=== PATIENT | female | born 2000 | race Caucasian/White ===

== ENCOUNTER 2024-03-18 08:57 | Emergency (ER) | payer OTHER, SELFPAY ==
--- NOTE | ~2024-03-18 | XR_ITS ---
EXAMINATION: XR CHEST CLINICAL INFORMATION: Chest pain. Cough. COMPARISON: None available. TECHNIQUE: 2 views of the chest were obtained. FINDINGS: The lungs are clear. The cardiomediastinal silhouette is normal in size. There is no pleural effusion or pneumothorax. No acute osseous abnormality. XR/XR chest 2V IMPRESSION: No acute cardiopulmonary findings. Electronically signed by: Ramiro Augustin MD 03/18/2024 09:29 AM EDT
[2024-03-18 09:06] VITALS: BP 119/69; PULSE 84; RESP 16; TEMP 37.1; O2SAT 99; BMI 32.1
--- NOTE | 2024-03-18 09:47 | ECG_ITS ---
Test Reason : CP Blood Pressure : / mmHG Vent. Rate : 085 BPM Atrial Rate : 085 BPM P-R Int : 138 ms QRS Dur : 078 ms QT Int : 354 ms P-R-T Axes : 031 055 017 degrees QTc Int : 421 ms Normal sinus rhythm Normal ECG No previous ECGs available Referred By: Sarika Castanon Electronically Signed By:DAYANARA BHAT
--- NOTE | 2024-03-18 09:51 | ED.GENADULT ---
HPI - General Adult General Chief complaint: General Medical Stated complaint: Headache/Bodyaches Time Seen by Provider: 03/18/24 09:20 Source: patient Mode of arrival: ambulatory Limitations: language barrier History of Present Illness ED Provider: Babita Castanon PA-C HPI narrative: 23 yo female with report of 2 x days aching joints, fevers, sternal chest pain only with walking. denies SOB while walking or other inciting events. Reports headache with photosensitivity, with increased pain/pressure when bending over in a forward position (head towards ground). Denies N/V/D. Denies cough, states had slight cough on day 1. Has been managing symptoms with acetaminophen at home. Denies neck pain, or rigidity, denies change in cervical range of motion. Denies sick contacts, no recent travel. [facility] vaccines are up to date, however, did not receive this seasons Flu vaccine as of this time. MD complaint: headache, body aches Onset (ago): day(s) Location: head, eyes and chest Radiation: non-radiation Associated symptoms: chest pain Treatments prior to arrival: NSAID Related Data Previous Rx's ?Medication ?Instructions ?Recorded xrpoowwdch-bkjeidrtuqsgf-iudvfyyb 1 tab PO Q6H PRN headache #7 tabs 03/18/24 50 mg-325 mg-40 mg tablet Allergies Allergy/AdvReac Type Severity Reaction Status Date / Time coconut Allergy Anaphylaxis Verified 03/18/24 09:14 mayonnaise Allergy Anaphylaxis Verified 03/18/24 09:14 shellfish derived Allergy Anaphylaxis Verified 03/18/24 09:14 Review of Systems Review of Systems: Yes all other systems are reviewed and are negative [facility] Social History Social History Advance Directives: No Advance Directives Information Provided: Yes Physical Exam ED Vital Signs: Vital Signs - 24 hr 03/18/24 09:06 03/18/24 11:11 Temperature 98.7 F 98.7 F Pulse Rate 84 84 Respiratory Rate 16 16 Blood Pressure 119/69 119/69 Pulse Oximetry 99 99 Oxygen Delivery Method Room Air Room Air BMI result Body Mass Index 32.1 Appearance: Alert. Oriented X3. No acute distress. Head: normocephalic, atraumatic. Eyes: Pupils equal, round and reactive to light. ENT: Pharynx normal. No tonsillar swelling or exudate. Neck: Normal inspection. Neck supple. No lymphadenopathy CVS: Normal heart rate and rhythm. Pulses normal. Respiratory: No respiratory distress. Breath sounds normal. Abdomen: Soft and nontender. +BS x4 Skin: Skin warm and dry. Normal skin color. Normal skin turgor. No rashes. Extremities: No lower extremity edema. No joint swelling. Neuro/psych: Oriented X 3. No motor deficit. No sensory deficit. CN II-XII intact. Normal speech and cognition. Medications Administered Discontinued Medications Generic Name Dose Route Start Last Admin Trade Name Chance PRN Reason Stop Dose Admin Ibuprofen 600 mg 03/18/24 10:02 03/18/24 10:11 Ibuprofen 600 Mg Tablet PO 03/18/24 10:03 600 mg ONCE ONE Administration Medical Decision Making Medical Decision Making [facility] Narrative: 23yo female with no pertinent medical history, not toxic appearing, afebrile, without N/V/D, negative for nuchal rigidity, negative for cervical tenderness, good active cervical ROM. Prearicular, postaricular, and occipital lymph nodes tender to palpation without swelling/not palpable. Knee and hip joints tender to palpation with ROM. External ear canal negative for erythema or swelling, internal canal negative for exudate or erythema, tympanic membranes pearly wahl without visible effusion bilaterally. Pupils PERRLA bilaterally. VS without abnormality,EKG without ectopy NSR, negative for CP at bedside assessment. CXR without evidence of PNA. Negative for COVID and Flu. Exam and clinical presentation are most consistent with acute viral process, low suspicion for encephalitis, meningitis. Her neuro exam is nonfocal. At this time she is stable for discharge home with supportive care. Return precautions were discussed Differential Diagnosis Differential Diagnoses: The differential diagnosis associated with the presentation includes COVID, flu, other viral syndrome, pericarditis, myocarditis, pneumonia, bronchitis, tick-borne illness Lab Data [facility] Lab Attestation statement: I reviewed the patient's lab results. Labs: Lab Results 03/18/24 Range/Units 09:31 COVID-19 (ANNE) Negative (Negative) COVID-19 Clin Com See Note Influenza Type A (JOSE) Negative (Negative) Influenza Type B (JOSE) Negative (Negative) Influenza A & B Note See Note Independent Interpretation I performed an independent interpretation of an: EKG and Plain X-Ray Interpretation: EKG showed NSR, ventricular rate 85 beats per minute, no ST segment elevations or depressions, isolated t-wave inversion in lead 3 only. CXR with clear lungs, without focal infiltrate, no cardiomegaly. Radiology Impression Discussion of test interpretation with radiology: I have reviewed the radiologist's reading. Radiologist Impression: XR/XR chest 2V IMPRESSION: No acute cardiopulmonary findings. Tests considered The following testing was considered but not selected: Tick panel considered however she denies any recent bites or rashes, does not spend time outside Prescription Management I considered prescription management with: Pain Medication, Antiviral and Antibiotic Critical Care Time Critical Care Time Critical Care Time: No Discharge Plan Discharge Clinical Impression: Acute viral syndrome Patient Disposition: Home, Self-Care Instructions: Viral Syndrome (ED) Additional Instructions: Your chest x-ray today was normal. Your EKG today was normal. You tested negative for COVID and flu. Your symptoms most likely due to another viral process. Recommend drinking plenty of fluids, take fmam-kem-szeuzhb cold and flu medications as needed for your symptoms. Take the prescribed medication as needed for headache. Recommend ibuprofen 600 mg every 6-8 hours as needed for headache as well, take this with food. Follow-up with your doctor. If you develop new or worsening symptoms call 911 or come back to the ER for further evaluation. Prescriptions: New tbwrscarmn-iyujihupmfwdb-hwaz 50-325-40 mg tablet 1 tab PO Q6H PRN (Reason: headache) Qty: 7 0RF Interventions: ED Discharge Assessment Last Done: 03/18/24 11:11 Discharge Date/Time: 03/18/24 11:11 Print Language: Greenlandic
[2024-03-18 09:54] LABS: COVID-19 Test Negative (Negative); IDNOW Serial# 08D9AD1C; IDNOW Serial# 152EDE1D; Influenza A Negative (Negative); Influenza B2 Negative (Negative)
[2024-03-18] MEDS: Ibuprofen 600 MG TABLET PO (10:11)
--- NOTE | 2024-03-18 10:12 | PC.NURSE ---
pt a&ox3, complains of 10/10 generalized pain and headache. pt mediated with ibuprofen per order.
[2024-03-18 11:11] VITALS: BP 119/69; PULSE 84; RESP 16; TEMP 37.1; O2SAT 99
== END 2024-03-18 11:11 | disposition home or self-care (01) ==
PROVIDERS: Physician Assistant; Emergency Provider Emergency Medicine; PCP Family Medicine
DX: B34.9 Viral infection, unspecified (principal); R51.9 Headache, unspecified; M79.10 Myalgia, unspecified site; R50.9 Fever, unspecified; R07.89 Other chest pain; R05.9 Cough, unspecified; Z11.52 Encounter for screening for COVID-19; Z79.899 Other long term (current) drug therapy
CPT/HCPCS: 71046; 87502; 87635; 93005; 99284

== ENCOUNTER 2024-07-27 02:21 | Emergency (ER) | payer OTHER, SELFPAY ==
[2024-07-27 02:47] VITALS: BP 115/70; PULSE 79; RESP 16; TEMP 37.1; O2SAT 98; BMI 26.1
--- OUTSIDE RECORDS SUMMARY | 2024-07-27 03:08 | XMS_ITS | Clinical Summary ---
Author Organization [facility] ity Address [id number] [place] [id number] Care Team Providers Care Vp Product Marketing Name Role Phone Unavailable Primary Care Provider Unavailabl e Social History Tobacco Use Types Packs/Day Years Used Date Smoking Tobacco: Never Assessed Sex and Gender Information Value Date Recorded Sex Assigned at Not on file Gender Identity Not on file Sexual Orientation Not on file Plan of Treatment Health Maintenance Due Date Last Done Comments Gonorrhea/Chlamydia Screening 2001 HPV Vaccines (1 - 3-dose series) 2016 DTaP,Tdap,and Td Vaccines (1 - Tdap) 2020 Hepatitis B Vaccines (1 of 3 - 19+ 3-dose series) 2020 Cervical Cancer Screening: P ap Smear 2022 Depression Screening 01/17/2024 HIV Screening 01/17/2024 Hepatitis C Screening 01/17/2024 Social Influencers of Health Screening 01/17/2024 COVID-19 Vaccine (1 - 2023-2 5 season) 2024 Influenza Vaccine (#1) 2024 HIB Vaccines Aged Out No longer eligi ble based on patient's age to complete this topic Hepatitis A Vaccines Aged Out No long er eligible based on patient's age to complete this topic IPV Vaccines Aged Out No longer eligi ble based on patient's age to complete this topic MMR Vaccines Aged Out No longer eligi ble based on patient's age to complete this topic Meningococcal ACWY Vaccine Aged Out N o longer eligible based on patient's age to complete this topic Pneumococcal Vaccine: Pediat rics (0 to 5 Years) and At-Risk Patients (6 to 64 Years) Aged Out No longer eligible b ased on patient's age to complete this topic RSV Immunization Patients Un bo 20 months Aged Out No longer eligible b ased on patient's age to complete this topic Varicella Vaccines Aged Out No longer eligible based on patient's age to complete this topic
[2024-07-27 03:40] VITALS: BP 114/58; PULSE 79; RESP 16; TEMP 36.9; O2SAT 100
[2024-07-27 03:40] LABS: IDNOW Serial# 58CA691E; Strep A Nucleic Acid Negative (Negative)
[2024-07-27 03:41] LABS: Influenza A PCR NEGATIVE (Negative); Influenza B PCR NEGATIVE (Negative); Resp Syncy Virus RNA Qual PCR NEGATIVE (Negative); SARS COV2 PCR INHOUSE POSITIVE (Negative)
--- NOTE | 2024-07-27 04:13 | ED.URI ---
HPI - URI/Sore Throat General Chief Complaint: Upper Respiratory Symptoms Stated Complaint: flu like, Time Seen by Provider: 07/27/24 03:59 Source: patient Mode of arrival: ambulatory Limitations: no limitations History of Present Illness ED Provider: HPI Narrative: Patient is 6 weeks complaining of cold symptoms for last 3 days with sore throat running nose body aches headache no abdominal pain no vaginal discharge Related Data Previous Rx's ?Medication ?Instructions ?Recorded vgqkftcnwp-faxknaoteqonu-nitxxrjj 1 tab PO Q6H PRN headache #7 tabs 03/18/24 50 mg-325 mg-40 mg tablet Allergies Allergy/AdvReac Type Severity Reaction Status Date / Time coconut Allergy Anaphylaxis Verified 07/27/24 02:50 mayonnaise Allergy Anaphylaxis Verified 07/27/24 02:50 shellfish derived Allergy Anaphylaxis Verified 07/27/24 02:50 Review of Systems Review of Systems: Yes all other systems are reviewed and are negative [facility] Social History Social History Advance Directives: No Advance Directives Information Provided: Yes Do you have a plan to hurt others: No Plan Physical Exam Vital Signs: Vital Signs: Last Vital Signs Temp 98.4 F 07/27/24 03:40 Pulse 79 07/27/24 03:40 Resp 16 07/27/24 03:40 BP 114/58 L 07/27/24 03:40 Pulse Ox 100 07/27/24 03:40 O2 Del Method Room Air 07/27/24 03:40 BMI result Body Mass Index 26.1 Appearance: Alert. Oriented X3. No acute distress. ENT: Pharynx slight erythema. Oral Mucosa moist clear rhinorrhea Neck: Normal inspection. Neck supple. CVS: Normal heart rate and rhythm. Pulses normal. Respiratory: No respiratory distress. Equal air entry bilateral, no wheezing/rales/rhonchi Skin: Skin warm and dry. Normal skin color. Normal skin turgor. Extremities: No lower extremity edema. Neuro: Oriented X 3. Medical Decision Making Lab Data [facility] Lab Attestation statement: I reviewed the patient's lab results. Labs: Lab Results 07/27/24 Range/Units 02:59 Influenza Type A (PCR) NEGATIVE (Negative) Influenza Type B (PCR) NEGATIVE (Negative) RSV RNA Qual (PCR) NEGATIVE (Negative) SARS-CoV-2 RNA (RT-PCR) POSITIVE A (Negative) S. pyogenes GrpA JOSE Negative (Negative) Discharge Plan Discharge Clinical Impression: COVID-19 Patient Disposition: Home, Self-Care Instructions: COVID-19 (Coronavirus Disease 2019) (ED) Additional Instructions: Drink plenty of fluid Tylenol for fever and pain Report to the ER if increased shortness a breath Prescriptions: No Action ghcrpfaode-kszilllnjawpf-jkeq 50-325-40 mg tablet 1 tab PO Q6H PRN (Reason: headache) Qty: 7 0RF Print Language: Malagasy
[2024-07-27 04:32] VITALS: BP 114/58; PULSE 79; RESP 16; TEMP 36.9; O2SAT 100
== END 2024-07-27 04:34 | disposition home or self-care (01) ==
PROVIDERS: Emergency Provider Internal Medicine
DX: U07.1 COVID-19 (principal); R09.89 Other specified symptoms and signs involving the circulatory and respiratory systems; R51.9 Headache, unspecified
CPT/HCPCS: 0241U; 87651; 99283; 99284

== ENCOUNTER 2024-11-06 17:30 | Emergency (ER) | payer OTHER, SELFPAY ==
--- NOTE | 2024-11-06 18:18 | ED.GENADULT ---
HPI - General Adult General Chief complaint: Upper Respiratory Symptoms Stated complaint: body aches flu like sympt Time Seen by Provider: 11/06/24 19:25 Source: patient Mode of arrival: ambulatory Limitations: no limitations History of Present Illness ED Provider: Dr. Coles HPI narrative: 24 year old at 23 weeks comes in with her and child for cough and body aches, bilateral ear pain and sore throat. Denies any falls or injury. Tried robitussin Related Data Previous Rx's ?Medication ?Instructions ?Recorded ceyrrqvzod-pcdgufpoghuou-slcummai 1 tab PO Q6H PRN headache #7 tabs 03/18/24 50 mg-325 mg-40 mg tablet Allergies Allergy/AdvReac Type Severity Reaction Status Date / Time coconut Allergy Anaphylaxis Verified 11/06/24 18:22 mayonnaise Allergy Anaphylaxis Verified 11/06/24 18:22 shellfish derived Allergy Anaphylaxis Verified 11/06/24 18:22 Review of Systems Review of Systems: Review of systems: General: fever chills recent illnessPatient denies any or falls Musculoskeletal: back pain or body aches Denies any injuries HEENT: cough headache, runny nose, ear pain Respiratory: denies shortness of breath, Cardiovascular: no chest pain or palpitations : denies dysuria, frequency Abdomen: no nausea vomiting denies abdominal pain Extremities: no swelling, no pain Skin: no diaphoresis Yes all other systems are reviewed and are negative PMFSH Social History Social History Advance Directives: No Advance Directives Information Provided: No Physical Exam ED Vital Signs: Vital Signs - 24 hr 11/06/24 18:20 Temperature 98.6 F Pulse Rate 125 H Respiratory Rate 18 Blood Pressure 114/66 Pulse Oximetry 97 Oxygen Delivery Method Room Air BMI result Body Mass Index 34.1 General: Well-appearing well-nourished in no signs of distress HEENT: Normocephalic atraumatic Neck: No signs of JVD, no masses no tenderness or lymphadenopathy Cardiovascular: Regular rate and rhythm Respiratory: Clear to auscultation bilaterally Abdomen: Soft nontender no masses rectal exam performed 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 Extremities: Normal pedal pulses no signs of edema Skin: Dry warm no rashes Back: No tenderness full ROM Course Course Course Narrative: This is a rapid medical exam performed by Thien Adame NP: Additional HPI, ROS, PE not included below will be deferred to primary provider. Patient is a 24-year-old female, 22weeks gestation, going to [facility] for OB care presenting with complaint of body aches, headache, sore throat, right ear pain, son sick with similar symptoms. Pts sxs began this am. HR 125 in triage. Plan: viral serology, HR Medical Decision Making Medical Decision Making MDM Narrative: Patiient looks well negative strept covid flu RSV. Educated on tylenol and avoiding robitussin Differential Diagnosis Differential Diagnoses: The differential diagnosis associated with the presentation includes Upper respiratory infection less likely pneumonia or anything dangerous patient looks well Lab Data Labs: Lab Results 11/06/24 Range/Units 18:36 Influenza Type A (PCR) NEGATIVE (Negative) Influenza Type B (PCR) NEGATIVE (Negative) RSV RNA Qual (PCR) NEGATIVE (Negative) SARS-CoV-2 RNA (RT-PCR) NEGATIVE (Negative) S. pyogenes GrpA JOSE Negative (Negative) Discharge Plan Discharge Clinical Impression: Upper respiratory infection Patient Disposition: Home, Self-Care Instructions: Upper Respiratory Infection (DC) Additional Instructions: you were seen for an upper respiratory infection you had swabs done for strep as well as COVID flu and RSV which were all negative. Please call follow up with her doctor. Prescriptions: No Action wgatvglixj-bqszocpcrxtef-gkjh 50-325-40 mg tablet 1 tab PO Q6H PRN (Reason: headache) Qty: 7 0RF Print Language: Surinamese
[2024-11-06 18:20] VITALS: BP 114/66; PULSE 125; RESP 18; TEMP 37; O2SAT 97; BMI 34.1
[2024-11-06 18:50] LABS: IDNOW Serial# 55D5AD1C; Strep A Nucleic Acid Negative (Negative)
[2024-11-06 19:24] LABS: Influenza A PCR NEGATIVE (Negative); Influenza B PCR NEGATIVE (Negative); Resp Syncy Virus RNA Qual PCR NEGATIVE (Negative); SARS COV2 PCR INHOUSE NEGATIVE (Negative)
[2024-11-06 20:05] VITALS: BP 107/63; PULSE 105; RESP 18; TEMP 37.3; O2SAT 98
[2024-11-06] MEDS: Acetaminophen 325 MG TABLET 975 MG PO (20:13)
[2024-11-06 20:23] VITALS: BP 107/63; PULSE 105; RESP 18; TEMP 37.3; O2SAT 98
== END 2024-11-06 20:23 | disposition home or self-care (01) ==
PROVIDERS: Registered Nurse Emergency; Emergency Provider Student in an Organized Health Care Education/Training Program
DX: O98.512 Other viral diseases complicating pregnancy, second trimester (principal); J06.9 Acute upper respiratory infection, unspecified; Z3A.23 23 weeks gestation of pregnancy; Z03.818 Encounter for observation for suspected exposure to other biological agents ruled out
CPT/HCPCS: 0241U; 87651; 99283; 99284

== ENCOUNTER 2025-05-24 06:19 | Emergency (ER) | payer OTHER, SELFPAY ==
[2025-05-24 06:25] VITALS: BP 114/66; PULSE 98; RESP 20; TEMP 37.6; O2SAT 98; BMI 32.6
[2025-05-24 07:20] LABS: IDNOW Serial# 55D5AD1C; Strep A Nucleic Acid Negative (Negative)
[2025-05-24 07:29] VITALS: BP 118/66; PULSE 92; RESP 16; O2SAT 99
[2025-05-24 07:30] VITALS: O2SAT 99
[2025-05-24] MEDS: Throat Lozenge, Medicated LOZENGE 1 LOZENGE MUCOUS MEM (07:30)
--- NOTE | 2025-05-24 07:44 | ED_ITS ---
HPI - URI/Sore Throat General Chief Complaint: Upper Respiratory Symptoms Stated Complaint: General Medical Time Seen by Provider: 05/24/25 07:06 Source: patient Mode of arrival: ambulatory Limitations: language barrier History of Present Illness ED Provider: HPI Narrative: Otherwise healthy 24-year-old woman presenting with sore throat, she states her was sick because someone at work was sick as well they also have a 3-month-old baby but the baby is doing well, she is mostly reporting cough since yesterday, body chills and a sore throat. Related Data Previous Rx's ?Medication ?Instructions ?Recorded xbwnbunozn-uycsnmikdljqm-vtbgajep 1 tab PO Q6H PRN hea dache #7 tabs 03/18/24 50 mg-325 mg-40 mg tablet acetaminophen 500 mg capsule 1,000 mg (2 x 500 mg) PO Q6H PRN 05/24/25 fever or pain 5 days #20 caps benzocaine 15 mg-menthol 2.6 mg 1 milton mucous membrane Q2-4H PRN 05/24/25 lozenges (Cepacol Sore Throat sore throat #16 ea (benzocaine-menthol)) Allergies Allergy/AdvReac Type Severity Reaction Status Date / Time coconut Allergy Anaphylaxis Verified 05/24/25 06:26 mayonnaise Allergy Anaphylaxis Verified 05/24/25 06:26 shellfish derived Allergy Anaphylaxis Verified 05/24/25 06:26 Review of Systems Constitutional: Constitutional: Reports as per [facility] Social History Social History Advance Directives: No Advance Directives Information Provided: No Physical Exam Exam: Exam: ?General: ??looks age appropriate TMs unremarkable bilaterally, no nasal discharge, uvula midline, no tonsillar exudates, she has erythema of the posterior oropharynx with some scattered vesicles Neck: Supple, no LAD ?CV: RRR, no obvious murmurs appreciated ?Resp: ?No wheezing rales rhonchi no stridor moving air well Abd: ?Bowel sounds are present, no tenderness no rebound no rigidity Skin: Warm, dry, intact, ?Neuro: ?Alert and oriented x3, moving upper and lower extremities symmetrically, no obvious facial asymmetry noted, cranial nerves 2-12 intact Vital Signs: Vital Signs: Last Vital Signs Temp 99.6 F 05/24/25 06:25 Pulse 92 05/24/25 07:29 Resp 16 05/24/25 07:29 BP 118/66 05/24/25 07:29 Pulse Ox 99 05/24/25 07:29 O2 Del Method Room Air 05/24/25 07:29 BMI result Body Mass Index 32.6 Medications Administered Discontinued Medications Generic Name Dose Route Start Last Admin Trade Name Chance PRN Reason Stop Dose Admin Benzocaine 1 lozenge 05/24/25 07:17 05/24/25 07:30 Throat Lozenge, Medicated Lozenge MUCOUS MEM 05/24/25 07:18 1 lozenge ONCE ONE Administration Dexamethasone 6 mg 05/24/25 07:17 05/24/25 07:30 Dexamethasone 6 Mg Tablet PO 05/24/25 07:18 6 mg ONCE ONE Administration Ketorolac Tromethamine 15 mg 05/24/25 07:17 05/24/25 07:30 Ketorolac Tromethamine 15 Mg/Ml Vial IM 05/24/25 07:18 15 mg ONCE ONE Administration Medical Decision Making Medical Decision Making MDM Narrative: 7:45 AM 05/24/2025 (Dr. Primitivo Alejandro): Oropharyngeal examination without any evidence of peritonsillar abscess or exudative tonsillitis she does have evidence for herpangina, otherwise lungs are clear nothing to suspect pneumonia or asthma, did not feel further imaging such as chest x-ray is indicated, symptomatic control and discharge anticipated Differential Diagnosis Differential Diagnoses: The differential diagnosis associated with the presentation includes (Acute otitis media, tonsillitis, peritonsillar abscess, pneumonia) Admission/Observation Consideration of admission/observation: Escalation of care including admission/observation considered Lab Data Labs: Lab Results 05/24/25 Range/Units 06:51 S. pyogenes GrpA JOSE Negative (Negative) Tests considered The following testing was considered but not selected: Chest x-ray Prescription Management I considered prescription management with: Antiviral and Antibiotic Discharge Plan Discharge Clinical Impression: Upper respiratory infection Additional Instructions: There is evidence that you have viral infection and pharyngitis, you can use Cepacol lozenges, uterine off to eat solid food but you can definitely make sure you sustained yourself with soups with nice meat broth I will be more gentle your throat, also this is the time I recommend patient is eat yogurt and ice cream because it is soothing to the throat, you can take Tylenol 975 mg every 6 hours needed for pain, Cepacol lozenges, and I started you on some medications i n the ER that we will hopefully improve your symptoms, your viral swabs has been reassuring, follow up with the PCP any other issues concerns come back to the ER Of note these symptoms may continue up to 10 days to 2 weeks so do not expect that they improve very fast Hay evidencia de que tiene josiah infecci?n viral y faringitis. Puede usar pastillas de Cepacol. Si tiene problemas uterinos, puede comer alimentos s?lidos, [place] definitivamente puede asegurarse de mantenerse con sopas y caldos de carne. Ser? m?s cuidadoso con chambers garganta. Adem?s, cr es el momento en que le recomiendo al paciente que tome yogur y helado, ya que marcelle la garganta. Puede eli Tylenol de 975 mg cada 6 horas si es necesario para el dolor. Tambi?n le introduje algunos medicamentos en urgencias que, con suerte, me jorar?n eunice s?ntomas. Eunice hisopados virales parra sido tranquilizadores. Von seguimiento con chambers m?dico de cabecera. Si tiene alguna otra inquietud, vuelva a urgencias. Cabe destacar que estos s?ntomas pueden persistir hasta 10 d?as o 2 semanas, as? que no espere josiah mejor?a muy r?pida. Prescriptions: New acetaminophen 500 mg capsule 1,000 mg PO Q6H PRN (Reason: fever or pain) 5 Days Qty: 20 0RF Cepacol Sore Throat (barry-men) 15-2.6 mg lozenge 1 milton mucous membrane Q2-4H PRN (Reason: sore throat) Qty: 16 0RF No Action qpheygympd-zcqawrrzkoulw-uoze 50-325-40 mg tablet 1 tab PO Q6H PRN (Reason: headache) Qty: 7 0RF Print Language: Sinhala
[2025-05-24 08:04] LABS: Resp Syncy Virus RNA Qual PCR NEGATIVE (Negative); SARS COV2 PCR INHOUSE NEGATIVE (Negative)
[2025-05-24 08:23] VITALS: BP 118/66; PULSE 92; RESP 16; TEMP 36.9; O2SAT 99
== END 2025-05-24 08:24 | disposition home or self-care (01) ==
PROVIDERS: Emergency Medicine; Emergency Provider Emergency Medicine; PCP Family Medicine
DX: J06.9 Acute upper respiratory infection, unspecified (principal); R05.9 Cough, unspecified; J02.9 Acute pharyngitis, unspecified; Z03.818 Encounter for observation for suspected exposure to other biological agents ruled out
CPT/HCPCS: 87637; 87651; 96372; 99284; 99285; J1885; J8540

== ENCOUNTER 2025-06-19 22:24 | Emergency (ER) | payer OTHER, SELFPAY ==
[2025-06-19 22:37] VITALS: BP 109/63; PULSE 95; RESP 18; TEMP 37; O2SAT 99; BMI 34.2
[2025-06-19 23:14] LABS: Strep A Nucleic Acid Negative (Negative)
[2025-06-20] MEDS: Albuterol Sulfate 90 MCG 8 GM INHALER 2 PUFF INHALE (00:24)
[2025-06-20 01:34] VITALS: BP 136/87; PULSE 113; RESP 19; TEMP 38.2; O2SAT 99
[2025-06-20 01:43] LABS: Resp Syncy Virus RNA Qual PCR NEGATIVE (Negative); SARS COV2 PCR INHOUSE NEGATIVE (Negative)
--- NOTE | 2025-06-20 01:49 | ED_ITS ---
HPI - Fever General Chief Complaint: Upper Respiratory Symptoms Stated Complaint: Fever Time Seen by Provider: 06/19/25 22:59 Source: patient and interpreter for the deaf Mode of arrival: ambulatory Limitations: language barrier History of Present Illness ED Provider: Dr. Lakshmi Tam HPI Narrative: 24 year old female 3 months post , no significant PMH, no flu vaccine presenting with cough and congestion, headache, body aches, fever of 101. Last tylenol dosed around 4:30pm. Kids are sick with similar symptoms. Arrives with her 3 month old infant who is also febrile. Denies vomting/diarrhea. Decreased oral intake but making breast milk. Related Data Previous Rx's ?Medication ?Instructions ?Recorded [id number] 1 tab PO Q6H PRN hea dache #7 tabs 03/18/24 50 mg-325 mg-40 mg tablet acetaminophen 500 mg capsule 1,000 mg (2 x 500 mg) PO Q6H PRN 05/24/25 fever or pain 5 days #20 caps benzocaine 15 mg-menthol 2.6 mg 1 milton mucous membrane Q2-4H PRN 05/24/25 lozenges (Cepacol Sore Throat sore throat #16 ea (benzocaine-menthol)) albuterol sulfate 90 mcg/actuation 2 inh inhalation Q4 H PRN shortness 06/20/25 breath activated powder inhaler of breath or cough #1 ea ibuprofen 600 mg tablet 600 mg PO Q8H PRN fever or p ain 06/20/25 #30 tabs polyethylene glycol 3350 17 17 g PO DAILY #119 grams 1 08/21/24 gram/dose oral powder (Miralax) Allergies Allergy/AdvReac Type Severity Reaction Status Date / Time coconut Allergy Anaphylaxis Verified 06/19/25 22:40 mayonnaise Allergy Anaphylaxis Verified 06/19/25 22:40 shellfish derived Allergy Anaphylaxis Verified 06/19/25 22:40 Review of Systems Review of Systems: as per HPI, full review of systems performed and negative but for the above mentioned pertinent positives and negatives. [facility] Social History Social History Smoked in Last 30 Days: No Use of substances other than those prescribed or required for medical reasons: No Advance Directives: No Advance Directives Information Provided: Yes Patient : No Physical Exam Exam: Exam: GENERAL: Ill-Appearing, appears uncomfortable. SKIN: Normal skin color for ethnicity, warm, dry, no rashes noted. HEENT:? Normocephalic, atraumatic, no stridor, dry mucous membranes, dentition intact, EOMI. NECK: Soft, supple, full ROM, midline structures nontender, no step-offs, no deformities, no lymphadenopathy. CHEST: Heart regular tachycardia, no murmurs, symmetric chest rise and fall. PULMONARY: Clear to auscultation bilaterally, diminished at the bases, no labored breathing, no wheezes/rhales/rhonchi. ABDOMINAL: Soft, nondistended, nontender, positive bowel sounds in all quadrants. : Deferred. MUSCULOSKELETAL: Normal tone, full range of motion, no deformities, no peripheral edema. NEURO: Alert and oriented x3, CN II through XII intact, equal strength and sensation bilateral upper and lower extremities, no focal neurologic deficits.? PSYCHIATRIC: Flat affect, fluid speech, good eye contact and appropriate demeanor. Vital Signs: Vital Signs: Last Vital Signs Temp 99.8 F 06/20/25 02:05 Pulse 100 06/20/25 02:05 Resp 16 06/20/25 02:05 BP 128/68 06/20/25 02:05 Pulse Ox 99 06/20/25 02:05 O2 Del Method Room Air 06/20/25 02:05 BMI result Body Mass Index 34.2 Medications Administered Discontinued Medications Generic Name Dose Route Start Last Admin Trade Name Freq PRN Reason Stop Dose Admin Albuterol Sulfate 2 puff 06/20/25 00:03 06/20/25 00:24 Albuterol Sulfate 90 Mcg 8 Gm Inhaler INHALE 06/20/25 00:04 2 puff ONCE ONE Administration Ibuprofen 600 mg 06/20/25 00:01 06/20/25 00:23 Ibuprofen 600 Mg Tablet PO 06/20/25 00:02 600 mg ONCE ONE Administration Medical Decision Making Medical Decision Making MDM Narrative: Patient presents today with flu-like symptoms. Differential diagnosis includes influenza, coronavirus, pneumonia, upper respiratory infection, among others. Most importantly, this patient is not in any acute respiratory distress. They have normal oxygen levels at room air. I have discussed medication and other home therapies that will help the patient and have discussed strict return precautions. Instructed that symptoms may worsen and the patient might need re-evaluation or even hospitalization in the future, but did not show signs of this at the time of discharge. Differential Diagnosis Differential Diagnoses: The differential diagnosis associated with the presentation includes (as above) Admission/Observation Consideration of admission/observation: Escalation of care including admission/observation considered Lab Data MDM Lab Attestation statement: I reviewed the patient's lab results. Labs: Lab Results 06/19/25 Range/Units 22:52 Influenza Type A (PCR) POSITIVE A (Negative) Influenza Type B (PCR) NEGATIVE (Negative) RSV RNA Qual (PCR) NEGATIVE (Negative) SARS-CoV-2 RNA (RT-PCR) NEGATIVE (Negative) S. pyogenes GrpA JOSE Negative (Negative) Independent Historian Clinical information obtained from an independent historian. History obtained from or confirmed by: Spouse Prescription Management I considered prescription management with: Pain Medication Discharge Plan Discharge Clinical Impression: Influenza A Patient Disposition: Home, Self-Care Instructions: Influenza (ED) Additional Instructions: Keep your mask on if you have to go into public for any reason while you are ill. Use Tylenol and Motrin around the clock for fever and body aches. Return to the emergency department with any new or worsening symptoms including: Worsening shortness of breath, continued fevers despite medications, inability to tolerate food or drink. Call 911 with any medical emergency. Prescriptions: New ibuprofen 600 mg tablet 600 mg PO Q8H PRN (Reason: fever or pain) Qty: 30 0RF polyethylene glycol 3350 [Miralax] 17 gram/dose powder 17 g PO DAILY Qty: 119 0RF albuterol sulfate 90 mcg/actuation aerosol powdr breath activated 2 inh inhalation Q4H PRN (Reason: shortness of breath or cough) Qty: 1 0RF No Action [id number]-[id number] 50-325-40 mg tablet 1 tab PO Q6H PRN (Reason: headache) Qty: 7 0RF acetaminophen 500 mg capsule 1,000 mg PO Q6H PRN (Reason: fever or pain) 5 Days Qty: 20 0RF Cepacol Sore Throat (barry-men) 15-2.6 mg lozenge 1 milton mucous membrane Q2-4H PRN (Reason: sore throat) Qty: 16 0RF Interventions: ED Discharge Assessment Last Done: 06/20/25 02:05 Discharge Date/Time: 06/20/25 02:07 Print Language: Khmer
[2025-06-20 02:05] VITALS: BP 128/68; PULSE 100; RESP 16; TEMP 37.7; O2SAT 99
== END 2025-06-20 02:07 | disposition home or self-care (01) ==
PROVIDERS: Emergency Provider Emergency Medicine; PCP Family Medicine
DX: J10.1 Influenza due to other identified influenza virus with other respiratory manifestations (principal); R05.9 Cough, unspecified; Z03.818 Encounter for observation for suspected exposure to other biological agents ruled out
CPT/HCPCS: 87637; 87651; 99284